=== PATIENT | female | born 1995 | race Caucasian/White ===

== ENCOUNTER 2017-08-17 16:46 | Inpatient (IN) | payer OTHER ==
[2017-08-17] MEDS: LR 1,000 ML IV ×2 (17:54→18:36)
[2017-08-17] MEDS: LACTATED RINGER'S 1000 ML IV (17:54)
[2017-08-17 18:50] LABS: MEAN CORPUSCULAR HEMOGLOBIN 30.3 pg (27.0-33.0); MEAN CORPUSCULAR HGB CONC 34.3 g/dl (32.0-36.5); MEAN CORPUSCULAR VOLUME 88.4 fl (80.0-96.0); PLATELET COUNT, AUTOMATED 170 10^3/uL (150-450); RED BLOOD COUNT 3.96 10^6/uL (4.00-5.40); RED CELL DISTRIBUTION WIDTH 12.4 % (11.5-14.5); WHITE BLOOD COUNT 7.2 10^3/uL (4.0-10.0)
[2017-08-17] MEDS: OXYTOCIN DRIP 30 UNITS in APPROPRIATE DILUENT 1 EA IV (18:59)
[2017-08-17 19:19] LABS: AMPHETAMINES URINE REFLEX NEGATIVE (NEGATIVE); BARBITURATES URINE REFLEX NEGATIVE (NEGATIVE); BENZODIAZEPINES URINE REFLEX NEGATIVE (NEGATIVE); CANNABINOIDS URINE REFLEX NEGATIVE (NEGATIVE); COCAINE METABOLITE URINE REFLE NEGATIVE (NEGATIVE); METHADONE URINE REFLEX NEGATIVE (NEGATIVE); OPIATES URINE REFLEX NEGATIVE (NEGATIVE); PHENCYCLIDINE URINE REFLEX NEGATIVE (NEGATIVE)
[2017-08-18 00:08] LABS: HBSAG L&D NEGATIVE (NEGATIVE)
[2017-08-18] MEDS: miSOPROStol 50 MCG 1/2 TAB (S0191) PO (09:34)
[2017-08-18] MEDS: LR 1,000 ML IV ×3 (14:43→21:14)
[2017-08-18] MEDS: OXYTOCIN DRIP 30 UNITS in APPROPRIATE DILUENT 1 EA IV (15:23)
[2017-08-18] MEDS: BUTORPHANOL 2 MG/ML INJ (J0595) IV (21:15)
[2017-08-19] MEDS: LR 1,000 ML IV ×2 (01:26→05:31)
[2017-08-19] MEDS: BUTORPHANOL 2 MG/ML INJ (J0595) IV ×2 (01:26→05:32)
[2017-08-19] MEDS ORDERED: FENTANYL 2MCG/ML ROPIVACAINE 0.2% IN 0.9% NACL 200ML IVBAG As Ordered (10:16)
[2017-08-19] MEDS ORDERED: ONDANSETRON 4MG/2ML VIAL (J2405) IV (12:00)
[2017-08-19] MEDS ORDERED: REFRIGERATOR IV KEYS XX (12:00)
[2017-08-19] MEDS ORDERED: EPIDURAL/PCA KEYS XX (12:00)
[2017-08-19] MEDS ORDERED: diphenhydrAMINE INJ 50MG/ML VIAL (J1200) IV (12:00)
[2017-08-19] MEDS ORDERED: FENTANYL/ROPIVACAINE/NACL BAG 200 ML EPIDURAL (12:00)
[2017-08-19] MEDS ORDERED: EPIDURAL COMMENT XX (12:00)
[2017-08-19] MEDS ORDERED: NALOXONE INJ 0.4 MG/1 ML VIAL (J2310) IV (12:00)
[2017-08-19] MEDS: ePHEDrine SULFATE 25 MG/5 ML(5MG/ML) SYRINGE IV (12:43)
[2017-08-19] MEDS: LACTATED RINGER'S 1000 ML IV (12:44)
[2017-08-19 17:56] LABS: CORD GAS ABE V -5.3; CORD GAS HCO3 V 22.2 MEQ/L; CORD GAS O2 SAT V 44.9 %; CORD GAS PCO2 V 50.1 mmHg; CORD GAS PH V 7.264 UNITS; CORD GAS PO2 V 22.4 mmHg; CORD GAS SBC V 18.8 MEQ/L; CORD GAS TCO2 V 23.7 MEQ/L
[2017-08-19 18:06] LABS: CORD GAS ABE A -6.8; CORD GAS HCO3 A 22.6 MEQ/L; CORD GAS O2 SAT A 23.8 %; CORD GAS PCO2 A 61.1 mmHg; CORD GAS PH A 7.186 UNITS; CORD GAS PO2 A 15.8 mmHg; CORD GAS SBC A 17.3 MEQ/L; CORD GAS TCO2 A 24.5 MEQ/L
[2017-08-19] MEDS ORDERED: DIBUCAINE 1% OINTMENT 30GM TOP (19:45)
[2017-08-19] MEDS ORDERED: RHOGAM 300 MCG (1500 IU) INJ (J2790) IM (19:45)
[2017-08-19] MEDS ORDERED: MEASLES,MUMPS,RUBELLA VACCINE INJ (MMR-II) (90707) SC (19:45)
[2017-08-19] MEDS: OXYTOCIN DRIP 30 UNITS in APPROPRIATE DILUENT 1 EA IV (20:00)
[2017-08-19] MEDS: ACETAMINOPHEN 500 MG TAB PO (21:51)
[2017-08-19] MEDS: IBUPROFEN 800 MG TAB PO (21:51)
[2017-08-19] MEDS: DOCUSATE SODIUM 100 MG CAP PO (21:51)
[2017-08-20] MEDS: ENOXAPARIN 40 MG/0.4 ML SYRINGE (J1650) SC (05:22)
[2017-08-20] MEDS: ACETAMINOPHEN 500 MG TAB PO (05:28)
[2017-08-20] MEDS: IBUPROFEN 800 MG TAB PO ×2 (05:28→14:07)
[2017-08-20] MEDS: PRENATAL VITAMINS CHEWABLE TABLET PO (09:14)
[2017-08-21] MEDS: IBUPROFEN 800 MG TAB PO (01:47)
[2017-08-21] MEDS: ENOXAPARIN 40 MG/0.4 ML SYRINGE (J1650) SC (06:09)
[2017-08-21] MEDS: PRENATAL VITAMINS CHEWABLE TABLET PO (07:34)
== END 2017-08-21 11:25 | disposition home or self-care (01) | DRG 775 ==
LOC: M LDI 16:46 → M OBS 08-19 20:19
PROVIDERS: Student in an Organized Health Care Education/Training Program
PROC: 3E033VJ Introduction of Other Hormone into Peripheral Vein, Percutaneous Approach (ICD-10-PCS; 2017-08-17)
PROC: 10E0XZZ Delivery of Products of Conception, External Approach (ICD-10-PCS; principal; 2017-08-19)
PROC: 0KQM0ZZ Repair Perineum Muscle, Open Approach (ICD-10-PCS; 2017-08-19)
PROC: 0HQ9XZZ Repair Perineum Skin, External Approach (ICD-10-PCS; 2017-08-19)
PROC: 10907ZC Drainage of Amniotic Fluid, Therapeutic from Products of Conception, Via Natural or Artificial Opening (ICD-10-PCS; 2017-08-19)
DX: O41.03X0 Oligohydramnios, third trimester, not applicable or unspecified (principal); D68.2 Hereditary deficiency of other clotting factors; O99.12 Other diseases of the blood and blood-forming organs and certain disorders involving the immune mechanism complicating childbirth; Z37.0 Single live birth; Z3A.38 38 weeks gestation of pregnancy; O36.5930 Maternal care for other known or suspected poor fetal growth, third trimester, not applicable or unspecified; O77.0 Labor and delivery complicated by meconium in amniotic fluid; O69.82X0 Labor and delivery complicated by other cord entanglement, without compression, not applicable or unspecified; O70.0 First degree perineal laceration during delivery; O70.1 Second degree perineal laceration during delivery

== ENCOUNTER → 2019-02-27 | Outpatient (REF) | payer OTHER ==
[~2019-02-27] MED LIST: IRON18TA2 PO; LOVE1INJ SC; LOVE1INJ2 SC; MOTR200T44 PO; PRENTAB20 PO; TYLE500T78 PO
== END ==
LOC: M SFHCLERA 19:17
PROVIDERS: ATTEND Nurse Practitioner Family
DX: Z53.9 Procedure and treatment not carried out, unspecified reason (principal)

== ENCOUNTER → 2022-07-01 | Outpatient (CLI) | payer OTHER ==
[~2022-07-01] MED LIST changes: +NORE0.353 PO
[2022-07-01 15:09] LABS: HEMATOCRIT 34.3 % (36.0-47.0); HEMOGLOBIN 11.4 g/dl (12.0-15.5); MEAN CORPUSCULAR HEMOGLOBIN 29.7 pg (27.0-33.0); MEAN CORPUSCULAR HGB CONC 33.2 g/dl (32.0-36.5); MEAN CORPUSCULAR VOLUME 89.3 fl (80.0-96.0); PLATELET COUNT, AUTOMATED 237 10^3/uL (150-450); RED BLOOD COUNT 3.84 10^6/uL (4.00-5.40); WHITE BLOOD COUNT 6.1 10^3/uL (4.0-10.0)
[2022-07-01 15:35] LABS: BLOOD UREA NITROGEN 12 MG/DL (9-23); CALCIUM LEVEL 8.9 MG/DL (8.5-10.1); CARBON DIOXIDE LEVEL 27 MMOL/L (20-31); CHLORIDE LEVEL 105 MMOL/L (98-107); GLOMERULAR FILTRATION RATE > 60.0 (>60); GLUCOSE, FASTING 102 MG/DL (60-100); POTASSIUM SERUM 4.3 MMOL/L (3.5-5.1); SODIUM LEVEL 139 MMOL/L (136-145)
== END ==
LOC: M LAB 14:35
PROVIDERS: ATTEND Plastic Surgery Surgery of the Hand
DX: N62 Hypertrophy of breast (principal)

== ENCOUNTER 2022-07-09 05:59 | Observation (INO) | payer OTHER ==
[2022-07-09] VITALS (7 sets, daily range): BP systolic 99–113; BP diastolic 59–71
[~2022-07-09] VITALS: Ht 162.6 cm; Wt 58.0 kg
[2022-07-09] MEDS ORDERED: HEPARIN SOD (PORCINE) 5000UNITS/ML 1ML VIAL/SYRINGE SQ ONE (06:05)
[2022-07-09] MEDS ORDERED: ceFAZolin SOD 2 GM in IV 1 EA IV ONE (06:05)
[2022-07-09] MEDS ORDERED: LIDOCAINE 1% SDV 30ML VIAL As Ordered ONE (07:15)
[2022-07-09] MEDS ORDERED: BUPIVACAINE HCL 0.25% 10ML VIAL As Ordered ONE (07:15)
[2022-07-09] MEDS ORDERED: BUPIVACAINE LIPOSOME/PF 1.3% 20ML VIAL (13.3MG/ML)(EXPAREL) As Ordered ONE (07:16)
[2022-07-09] MEDS ORDERED: EPINEPHrine INJ 1 MG/ML 1ML AMP As Ordered ONE (07:16)
[2022-07-09] MEDS ORDERED: GENTAMICIN SULF 80MG/2ML VIAL As Ordered ONE (07:16)
[2022-07-09] MEDS ORDERED: SCOPOLAMINE 1MG TRANSDERMAL PATCH TOP ONE (07:20)
[2022-07-09] MEDS ORDERED: ROCURONIUM BROMIDE 50MG/5ML VIAL As Ordered ONE ×3 (07:23→10:10)
[2022-07-09] MEDS ORDERED: propofoL 200 MG/20 ML VIAL As Ordered ONE (07:23)
[2022-07-09] MEDS ORDERED: LIDOCAINE 2% 100MG/5ML SDV (FOR ANES.) As Ordered ONE (07:23)
[2022-07-09] MEDS ORDERED: ONDANSETRON 4MG 2ML VIAL As Ordered ONE (07:23)
[2022-07-09] MEDS ORDERED: LR 1,000 ML IV SCH ×2 (07:25→11:35)
[2022-07-09] MEDS ORDERED: MIDAZOLAM INJ 2MG/2ML VIAL As Ordered ONE (07:25)
[2022-07-09] MEDS ORDERED: fentaNYL 250 MCG/5 ML INJECTION As Ordered ONE (07:25)
[2022-07-09] MEDS ORDERED: LACRILUBE (AKWA TEARS) OPHTH OINT 3.5GM As Ordered ONE (08:04)
[2022-07-09] MEDS ORDERED: PHENYLephrine 500MCG 5ML (100MCG/ML) SYRINGE As Ordered ONE (08:15)
[2022-07-09] MEDS ORDERED: SUGAMMADEX SODIUM 500 MG/5 ML VIAL (BRIDION) As Ordered ONE (08:15)
[2022-07-09] MEDS ORDERED: ACETAMINOPHEN 1000MG 100ML IV BAG As Ordered ONE (08:15)
[2022-07-09] MEDS ORDERED: HYDROmorphone HCL 2MG/ML 1ML VIAL As Ordered ONE (08:15)
[2022-07-09] MEDS ORDERED: ePHEDrine SULFATE 25 MG/5 ML(5MG/ML) SYRINGE As Ordered ONE (08:17)
[2022-07-09] MEDS ORDERED: METOCLOPRAMIDE INJ 10MG/2ML VIAL As Ordered ONE (08:46)
[2022-07-09] MEDS ORDERED: SEVOFLURANE INHAL SOLN 250 ML BTL As Ordered ONE (09:07)
[2022-07-09] MEDS ORDERED: HYDROMORPHONE HCL 0.5 MG/ 0.5 ML SYRINGE IV PRN (11:35)
[2022-07-09] MEDS ORDERED: fentaNYL 100 MCG/2 ML INJECTION IV PRN (11:35)
[2022-07-09] MEDS ORDERED: ONDANSETRON 4MG 2ML VIAL IV PRN ×2 (11:35→11:40)
[2022-07-09] MEDS ORDERED: ACETAMINOPHEN TAB 650MG DOSE (2X325MG) PO PRN (11:40)
[2022-07-09] MEDS: LR 1,000 ML IV SCH (11:40)
[2022-07-09] MEDS: oxyCODONE 5MG TAB PO PRN ×2 (12:21→12:50)
[2022-07-09] MEDS: ceFAZolin SOD 1 GM in D5W MINI-BAG PLUS 50 ML IV SCH (16:44)
[2022-07-09] MEDS: PERCOCET 5MG/325MG TAB PO PRN (17:09)
[2022-07-10] MEDS: ceFAZolin SOD 1 GM in D5W MINI-BAG PLUS 50 ML IV SCH (00:16)
[2022-07-10 02:00] VITALS: BP 109/72
[2022-07-10] MEDS: traMADol 50 MG TAB PO PRN ×2 (03:39→11:18)
[2022-07-10] MEDS: LR 1,000 ML IV SCH (03:40)
[2022-07-10 06:00] VITALS: BP 93/62
[2022-07-10] MEDS: PERCOCET 5MG/325MG TAB PO PRN (06:32)
[2022-07-10] MEDS ORDERED: TRAM50TA2 PO (09:47)
== END 2022-07-10 13:50 | disposition home or self-care (01) ==
LOC: M SDC 05:59 → M MS5PR 06:00
PROVIDERS: ADMIT Plastic Surgery Surgery of the Hand; ATTEND Plastic Surgery Surgery of the Hand
DX: N62 Hypertrophy of breast (principal); D22.5 Melanocytic nevi of trunk; D68.2 Hereditary deficiency of other clotting factors; Z79.899 Other long term (current) drug therapy
CPT/HCPCS: 11402; 19318; 88305; 96365; 96366; C9290; J0131; J0690; J1100; J1170; J1580; J1644; J2250; J2370; J2405; J2765; J3010; S0020